=== PATIENT | male | born 1985 | race Caucasian/White ===

== ENCOUNTER 2017-04-15 00:56 | Emergency (ER) | payer SELFPAY ==
[2017-04-15] MEDS ORDERED: 0.9 % SODIUM CHLORIDE 1,000 ML BAG IV ONE (01:27)
[2017-04-15] MEDS ORDERED: HYDROMORPHONE HCL 1 MG/ML SYRINGE IVP ONE (01:28)
[2017-04-15] MEDS ORDERED: ONDANSETRON HCL IV 4 MG/2 ML VIAL IVP ONE (01:28)
[2017-04-15 01:40] LABS: HEMATOCRIT 23.7 % (42.0-52.0); HEMOGLOBIN 8.7 gm/dl (14.0-18.0); MEAN CELL VOLUME 101.7 fl (81-97); MEAN CORPUSCULAR HEMOGLOBIN 37.3 pg (27-33); MEAN CORPUSCULAR HGB CONC 36.7 g/dl (32-36); MEAN PLATELET VOLUME 9.9 fl (7.4-10.4); PLATELET COUNT 120 K/uL (130-400); RED BLOOD COUNT 2.33 M/uL (4.40-5.70); RED CELL DISTRIBUTION WIDTH 12.6 % (11.5-14.5); WHITE BLOOD COUNT W/O DIFF 17.8 K/uL (4.2-12.2)
--- NOTE | 2017-04-15 01:43 | Emergency Department Record ---
History of Present Illness - General Chief Complaint: Abdominal Pain Stated Complaint: CRAMPING ALL OVER Time Seen by Provider: 04/15/17 01:37 Source: Patient Mode of Arrival: Ambulatory Limitations: No limitations - History of Present Illness Initial Comments: pt brought in by ems for abd cramping. pt states this happens when he is dehyfrated. he has had no diarrhea. he is hiv [facility] into [facility]. he goes to [facility] for [facility] care. MD Complaint: Abdominal pain Onset/Timin -: Days(s) Location: Diffuse Severity: Severe Quality: Cramping Consistency: Constant, Getting worse Associated Symptoms: Nausea - Related Data Home Medications Medication Instructions Recorded Confirmed Last Taken Abacavir/Dolutegravir/Lamivudi 1 each PO QHS 04/15/17 04/15/17 Unknown [Triumeq Tablet] Cetirizine HCl [Zyrtec] 10 mg PO DAILY 04/15/17 04/15/17 Unknown Clonazepam [Klonopin] 1 mg PO DAILY 04/15/17 04/15/17 Unknown Dextroamphetamine/Amphetamine 15 mg PO DAILY 04/15/17 04/15/17 Unknown [Adderall] Metoclopramide HCl [Reglan] 10 mg PO TID 04/15/17 04/15/17 Unknown Quetiapine Fumarate [Seroquel] 300 mg PO QHS 04/15/17 04/15/17 Unknown Sertraline HCl [Zoloft] 200 mg PO DAILY 04/15/17 04/15/17 Unknown Allergies Allergy/AdvReac Type Severity Reaction Status Date / Time No Known Drug Allergies Allergy Verified 04/15/17 00:58 Travel Screening - Travel/Exposure Within Last 30 Days Have you traveled within the last 30 days?: No Review of Systems Reviewed: No additional complaints except as noted below Constitutional: Reports: As per HPI. Denies: Chills, Fever, Malaise, Night sweats, Weakness, Weight change Eyes: Reports: As per HPI. Denies: Eye discharge, Eye pain, Photophobia, Vision change ENT: Reports: As per HPI. Denies: Congestion, Dental pain, Ear pain, Epistaxis , Hearing loss, Throat pain Respiratory: Reports: As per HPI. Denies: Cough, Dyspnea, Hemoptysis, Stridor, Wheezes Cardiovascular: Reports: As per HPI. Denies: Arrhythmia, Chest pain, Dyspnea on exertion, Edema, Murmurs, Orthopnea, Palpitations, Paroxysmal nocturnal dyspnea, Rheumatic Fever, Syncope Endocrine: Reports: As per HPI. Denies: Fatigue, Heat or cold intolerance, Polydipsia, Polyuria Gastrointestinal: Reports: As per HPI, Abdominal pain, Nausea. Denies: Constipation, Diarrhea, Hematemesis, Hematochezia, Melena, Vomiting Genitourinary: Reports: As per HPI. Denies: Dysuria, Frequency, Hematuria, Incontinence, Retention, Testicular pain, Testicular mass, Urgency Musculoskeletal: Reports: As per HPI. Denies: Arthralgia, Back pain, Gout, Joint swelling, Myalgia, Neck pain Skin: Reports: As per HPI. Denies: Bruising, Change in color, Change in hair/ nails, Lesions, Pruritus, Rash Neurological: Reports: As per HPI. Denies: Abnormal gait, Confusion, Headache, Numbness, Paresthesias, Seizure, Tingling, Tremors, Vertigo, Weakness Psychiatric: Reports: As per HPI. Denies: Anxiety, Auditory hallucinations, Depression, Homicidal thoughts, Suicidal thoughts, Visual hallucinations Hematological/Lymphatic: Reports: As per HPI. Denies: Anemia, Blood Clots, Easy bleeding, Easy bruising, Swollen glands Past Medical History - SOCIAL HISTORY Smoking Status: Current every day smoker Alcohol Use: None Drug Use: Occasional Drug Use Detail:: Marijuana - RESPIRATORY Hx Respiratory Disorders: No - CARDIOVASCULAR Hx Cardio Disorders: No - NEURO Hx Neuro Disorders: No - GI Hx GI Disorders: No - Hx Genitourinary Disorders: No - ENDOCRINE Hx Endocrine Disorders: No - MUSCULOSKELETAL Hx Musculoskeletal Disorders: No - PSYCH Hx Psych Problems: Yes Hx Anxiety: Yes Hx Depression: Yes - HEMATOLOGY/ONCOLOGY Hx Hematology/Oncology Disorders: No Family Medical History Any Significant Family History?: No Physical Exam - General General Appearance: Alert, Oriented x3, Cooperative, Mild distress - Head Head exam: Normal inspection - Eye Eye exam: Normal appearance, PERRL, Nystagmus Pupils: Normal accommodation - ENT ENT exam: Normal exam, Mucous membranes dry, Normal external ear exam, Normal orophraynx, TM's normal bilaterally Ear exam: Normal external inspection. negative: External canal tenderness Nasal Exam: Normal inspection. negative: Discharge, Sinus tenderness Mouth exam: Normal external inspection, Tongue normal Teeth exam: Normal inspection. negative: Dental caries Throat exam: Normal inspection. negative: Tonsillar erythema, Tonsillar exudate - Neck Neck exam: Normal inspection, Full ROM. negative: Tenderness - Respiratory Respiratory exam: Normal lung sounds bilaterally. negative: Respiratory distress - Cardiovascular Cardiovascular Exam: Normal rhythm, Normal heart sounds, Tachycardia - GI/Abdominal GI/Abdominal exam: Soft, Normal bowel sounds, Tenderness - Rectal Rectal exam: Deferred - exam: Deferred - Extremities Extremities exam: Normal inspection, Full ROM, Normal capillary refill. negative: Tenderness - Back Back exam: Reports: Normal inspection, Full ROM. Denies: Muscle spasm, Rash noted, Tenderness - Neurological Neurological exam: Alert, Normal gait, Oriented X3, Reflexes normal - Psychiatric Psychiatric exam: Normal affect, Normal mood - Skin Skin exam: Dry, Intact, Normal color, Warm Course Vital Signs 04/15/17 00:59 Temperature 97.6 F Pulse Rate [ 114 H Pulse Ox Probe] Respiratory 24 Rate Blood Pressure 141/117 [Left Arm] Pulse Ox 99 Medical Decision Making - Lab Data Result diagrams: 04/15/17 01:07 04/15/17 01:07 Disposition Disposition: Transfer Clinical Impression: AIDS, Dehydration Anemia Qualifiers: Anemia type: unspecified type Qualified Code(s): D64.9 - Anemia, unspecified Renal failure Qualifiers: Renal failure chronicity: acute Acute renal failure type: unspecified Qualified Code(s): N17.9 - Acute kidney failure, unspecified Disposition: Acute Care Hospital Transfer Transfer To: of Reason For Transfer: need inf disease, pts request Accepting Physician: dr walker Time Discussed w/Accepting Physician: 02:56 Forms: Patient Portal Access Quality - Quality Measures Quality Measures: N/A - Blood Pressure Screening Does Patient Have Any of the Following: No Blood Pressure Classification: Hypertensive Reading Systolic Measurement: 165 Diastolic Measurement: 116 Screening for High Blood Pressure: < First Hypertensive BP, F/U Documented > [ [id number]] First Hypertensive Follow-up Interventions: Follow-up with rescreen GT 1 day and LT 4 weeks.
[2017-04-15 02:06] LABS: CREATININE 3.9 mg/dL (0.7-1.2); TOTAL PROTEIN 10.9 g/dL (6.6-8.7)
[2017-04-15 02:18] LABS: ALB/GLOB RATIO 1.7 (1.1-1.8); ALBUMIN 6.8 g/dL (4.0-5.0)
[2017-04-15] MEDS ORDERED: 0.9 % SODIUM CHLORIDE 1,000 ML BAG IV STA (03:21)
[2017-04-15] MEDS ORDERED: 0.9 % SODIUM CHLORIDE 1000ML 1,000 ML IV ONE (03:22)
--- NOTE | 2017-04-15 15:55 | CT SCAN REPORT ---
EXAM: CT SCAN ABDOMEN/PELVIS WO CONTRAST HISTORY: GENERALIZED ABDOMINAL PAIN AND CRAMPING FOR SEVERAL DAYS. TECHNIQUE: Axial CT scan of the abdomen and pelvis performed without oral or IV contrast at the referring physician's request. Preliminary report provided by [facility]. COMPARISON: None. FINDINGS: Surgical clips are seen in the gallbladder fossa presumably from prior cholecystectomy. There is probably also some postop change in the right inguinal region presumably from prior hernia repair. No intrarenal calculi identified on either side. No hydronephrosis or hydroureter is seen on either side. As such, the ureters are somewhat difficult to follow in their nondilated state throughout the retroperitoneum and pelvis. No suspicious left-sided pelvic calcification is seen to suggest a left ureteral calculus. There is a small calcification in the right side of the upper pelvis. Right ureter is somewhat difficult to visualize at this level but this is probably an arterial calcification rather than a nonobstructing small ureteral calculus. No bladder calculus evident. If there is a strong clinical suspicion of a right ureteral calculus, follow-up CT urogram would be suggested in an effort to better visualize the right ureter and establish it's relationship to the small calcification. Evaluation of the bowel and viscera are very limited without oral or IV contrast today. Given this limitation, no definite hepatic, splenic, adrenal, pancreatic, or renal mass identified. No appendicitis evident. No free intraperitoneal air or free intraperitoneal fluid identified. Very small periumbilical anterior abdominal wall hernia containing adipose tissue but no bowel. IMPRESSION: 1. NO INTRARENAL CALCULUS OR HYDRONEPHROSIS ON EITHER SIDE. TINY CALCIFICATION, RIGHT UPPER PELVIS, IS PROBABLY AN ARTERIAL CALCIFICATION ALTHOUGH THE RIGHT URETER ITSELF IS POORLY SEEN AT THIS LEVEL. 2. POSTOP CHOLECYSTECTOMY AND RIGHT INGUINAL HERNIA SURGERY. 3. APPENDIX APPEARS NEGATIVE. NO FREE AIR OR FREE FLUID EVIDENT. JOB NUMBER: [id number] [facility]
== END 2017-04-15 03:39 | disposition short-term general hospital (02) ==
LOC: ER 00:56
DX: N17.9 Acute kidney failure, unspecified (principal); B20 Human immunodeficiency virus [HIV] disease; E86.0 Dehydration; D64.9 Anemia, unspecified; R10.84 Generalized abdominal pain; R11.0 Nausea; F17.210 Nicotine dependence, cigarettes, uncomplicated
CPT/HCPCS: 99285 ×2; 96374; 96375; 96361; 82550; 83690; 80053; 85027; 74176; J2405; J1170; J7030